=== PATIENT | female | born 1990 | race Caucasian/White ===

== ENCOUNTER 2016-06-07 17:24 | Emergency (ER) | payer MEDICAID ==
[2016-06-07 17:44] VITALS: BP 112/70
--- NOTE | 2016-06-07 18:27 | UC ---
Dental HPI - HPI Summary HPI Summary: right sided ELAM x 2 weeks with dental pain. No fever. No relief with ibuprofen or aleve, which pt has been taking despite allergy. Pt has had wisdom teeth removed. Has an appt with a dentist tomorrow. - History of Current Complaint Chief Complaint: UCDentalProblem Stated Complaint: HEADACHES,TOOTHACHE Time Seen by Provider: 06/07/16 18:07 Hx Obtained From: Patient Hx Last Menstrual Period: Feb 2016 ?: No Onset/Duration: Gradual Onset, Lasting Weeks, Still Present Severity: Severe Pain Intensity: 10 Pain Scale Used: 0-10 Numeric Aggravating: Nothing Alleviating: Nothing - Allergies/Home Medications Allergies/Adverse Reactions: Allergies Allergy/AdvReac Type Severity Reaction Status Date / Time Ibuprofen Allergy Intermediate Hives Verified 06/07/16 17:32 Aminothiols Allergy Unknown Vomiting Verified 06/07/16 17:32 Aztreonam Allergy Unknown Unknown Verified 06/07/16 17:32 Reaction Details Carbapenems Allergy Unknown Unknown Verified 06/07/16 17:32 Reaction Details Cephalosporins Allergy Unknown Unknown Verified 06/07/16 17:32 Reaction Details Macrolides Allergy Unknown Unknown Verified 06/07/16 17:32 Reaction Details Penicillins Allergy Unknown Unknown Verified 06/07/16 17:32 Reaction Details Latex Allergy Swelling Verified 06/07/16 17:32 ANESTHETICS Allergy Unknown Unknown Uncoded 06/07/16 17:32 Reaction Details ketoloides Allergy Unknown Unknown Uncoded 06/07/16 17:32 Reaction Details PMH/Surg Hx/FS Hx/Imm Hx GI/ History Of: Reports: Gastroesophageal Reflux - Surgical History Surgical History: Yes Surgery Procedure, Year, and Place: TONSILLECTOMY. C-SECT X 1 - Family History Known Family History: Positive: Hypertension - Social History Alcohol Use: None Substance Use Type: None Smoking Status (MU): Never Smoked Tobacco Type: Cigarettes When Did the Patient Quit Smoking/Using Tobacco: TWO YEARS AGO - Immunization History Most Recent Influenza Vaccination: None Most Recent Tetanus Shot: UTD Most Recent Pneumonia Vaccination: N/A Review of Systems Constitutional: Negative ENT: Dental Pain, Ear Ache Cardiovascular: Negative Motor: Negative Neurovascular: Negative Musculoskeletal: Negative Neurological: Headache Psychological: Negative All Other Systems Reviewed And Are Negative: Yes Physical Exam Triage Information Reviewed: Yes Appearance: Well-Nourished, Ill-Appearing, Pain Distress Vital Signs: Initial Vital Signs Temp 98.1 F 06/07/16 17:34 Pulse 84 06/07/16 17:34 Resp 18 06/07/16 17:34 BP 112/70 06/07/16 17:34 Pulse Ox 100 06/07/16 17:34 Vital Signs Reviewed: Yes Eyes: Positive: Conjunctiva Clear ENT: Positive: Hearing grossly normal, Pharynx normal, TMs normal Dental: Positive: Percussion Tenderness @ - right rear lower molar, Abscess @ - right rear molar, lower, Cellulitis @ - right lower rear molar Neck: Positive: Supple, Nontender, No Lymphadenopathy Respiratory: Positive: No respiratory distress Cardiovascular: Positive: RRR, No Murmur, Pulses Normal, Brisk Capillary Refill Musculoskeletal: Positive: Strength Intact, ROM Intact Neurological Exam: Normal Psychological Exam: Normal Skin Exam: Normal Dental Complaint Course/Dx - Differential Dx/Diagnosis Differential Diagnosis/Dx: Dental Abscess, Dental Caries Provider Diagnoses: dental abscess. headache Discharge - Discharge Plan Condition: Stable Disposition: HOME Prescriptions: Acetaminop/Codeine 30 MG TAB* [Tylenol/Codeine 30 MG TAB*] 1 tab PO Q8H PRN #6 tab MDD 3 PRN Reason: Pain Clindamycin CAP* [Cleocin 150 MG CAP*] 150 mg PO QID #40 cap Patient Education Materials: Dental Abscess (ED), Acute Headache (ED) Referrals: Nara Morin MD [Primary Care Provider] - 7 Days Additional Instructions: Keep the appointment with the dentist tomorrow. Return to urgent care if any new or worsening symptoms.
[2016-06-07] MEDS ORDERED: Acetaminophen TAB* 325 MG PO ONE (18:48)
== END 2016-06-07 19:01 | disposition home or self-care (01) ==
LOC: UCCORT 17:24
DX: K04.7 Periapical abscess without sinus (principal); R51 Headache; Z32.02 Encounter for pregnancy test, result negative; Z88.4 Allergy status to anesthetic agent; Z88.6 Allergy status to analgesic agent; Z88.1 Allergy status to other antibiotic agents; Z88.0 Allergy status to penicillin; Z88.8 Allergy status to other drugs, medicaments and biological substances
CPT/HCPCS: 81003; 84702; 99212; A9270-GY; G0463

== ENCOUNTER 2016-06-13 19:11 | Emergency (ER) | payer MEDICAID ==
[2016-06-13 20:48] VITALS: BP 116/75
[2016-06-13] MEDS ORDERED: diPHENhydraMINE PO* 25 MG PO ONE (21:32)
--- NOTE | 2016-06-13 21:38 | UC ---
Complaint Female HPI - HPI Summary HPI Summary: Vulvar itching and open areas starting 2 days ago. Feels like "infections" she' s had in the past. Denies fever or abdominal pain. Has current female sexual partner. No recent testing for STIs Also has had itchy bumps showing up on both legs for the last day or so. 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 - History Of Current Complaint Chief Complaint: UCGU Stated Complaint: PERSONAL Time Seen by Provider: 06/13/16 21:11 Hx Obtained From: Patient Hx Last Menstrual Period: Feb 2016 ?: No Onset/Duration: Gradual Onset, Lasting Days Timing: Constant Severity Initially: Mild Severity Currently: Mild Aggravating Factor(s): Urination Associated Signs And Symptoms: Negative: Vaginal Bleeding/Discharge, Vomiting(# Of Episodes =), Genital Blisters - Allergies/Home Medications Allergies/Adverse Reactions: Allergies Allergy/AdvReac Type Severity Reaction Status Date / Time Ibuprofen Allergy Intermediate Hives Verified 06/13/16 20:48 Aminothiols Allergy Unknown Vomiting Verified 06/13/16 20:48 Aztreonam Allergy Unknown Unknown Verified 06/13/16 20:48 Reaction Details Carbapenems Allergy Unknown Unknown Verified 06/13/16 20:48 Reaction Details Cephalosporins Allergy Unknown Unknown Verified 06/13/16 20:48 Reaction Details Macrolides Allergy Unknown Unknown Verified 06/13/16 20:48 Reaction Details Penicillins Allergy Unknown Unknown Verified 06/13/16 20:48 Reaction Details Latex Allergy Swelling Verified 06/13/16 20:48 ANESTHETICS Allergy Unknown Unknown Uncoded 06/13/16 20:48 Reaction Details ketoloides Allergy Unknown Unknown Uncoded 06/13/16 20:48 Reaction Details PMH/Surg Hx/FS Hx/Imm Hx GI/ History Of: Reports: Gastroesophageal Reflux - Surgical History Surgical History: Yes Surgery Procedure, Year, and Place: TONSILLECTOMY. C-SECT X 1 - Family History Known Family History: Positive: Hypertension - Social History Alcohol Use: None Substance Use Type: None Smoking Status (MU): Never Smoked Tobacco Type: Cigarettes When Did the Patient Quit Smoking/Using Tobacco: TWO YEARS AGO - Immunization History Most Recent Influenza Vaccination: None Most Recent Tetanus Shot: UTD Most Recent Pneumonia Vaccination: N/A Review of Systems Constitutional: Negative Skin: Rash Eyes: Negative ENT: Negative Respiratory: Negative Cardiovascular: Negative Gastrointestinal: Negative Genitourinary: Other - itching, lesions Motor: Negative Neurovascular: Negative Musculoskeletal: Negative Neurological: Negative Psychological: Negative All Other Systems Reviewed And Are Negative: Yes Physical Exam Triage Information Reviewed: Yes Appearance: Well-Appearing, No Pain Distress, Obese Vital Signs: Initial Vital Signs Temp 99.9 F 06/13/16 20:43 Pulse 79 06/13/16 20:43 Resp 16 06/13/16 20:43 BP 116/75 06/13/16 20:43 Pulse Ox 99 06/13/16 20:43 Vital Signs Reviewed: Yes Eye Exam: Normal Eyes: Positive: Conjunctiva Clear ENT Exam: Normal ENT: Positive: Normal ENT inspection, Hearing grossly normal, Pharynx normal, TMs normal Dental Exam: Normal Neck exam: Normal Neck: Positive: Supple, Nontender, No Lymphadenopathy Respiratory Exam: Normal Respiratory: Positive: Chest non-tender, Lungs clear, Normal breath sounds, No respiratory distress, No accessory muscle use Cardiovascular Exam: Normal Cardiovascular: Positive: RRR, No Murmur Abdomen Description: Positive: Soft. Negative: CVA Tenderness (R), CVA Tenderness (L) Musculoskeletal Exam: Normal Neurological Exam: Normal Psychological Exam: Normal Skin Exam: Other - large papules on legs - Additional Comments pelvic exam performed, swabs for affirm and gc/chlamydia collected. External vulva has open denuded areas, white d/c present. Vaginal simeon unremarkable, white discharge present. Cervix and adnexa nontender, no masses. Complaint Female Dx - Differential Dx/Diagnosis Provider Diagnoses: yeast vaginitis. Insect bites Discharge - Discharge Plan Condition: Stable Disposition: HOME Prescriptions: Fluconazole [Diflucan 150 MG (NF)] 150 mg PO ONCE #2 tab Patient Education Materials: Bed Bugs (ED), Vulvovaginal Candidiasis (ED) Referrals: Nara Morin MD [Primary Care Provider] -
== END 2016-06-13 22:35 | disposition home or self-care (01) ==
LOC: UCCORT 19:11
DX: B37.3 Candidiasis of vulva and vagina (principal); S80.862A Insect bite (nonvenomous), left lower leg, initial encounter; S80.861A Insect bite (nonvenomous), right lower leg, initial encounter; W57.XXXA Bitten or stung by nonvenomous insect and other nonvenomous arthropods, initial encounter; Y93.9 Activity, unspecified; Y92.9 Unspecified place or not applicable; K21.9 Gastro-esophageal reflux disease without esophagitis; E66.9 Obesity, unspecified; Z88.6 Allergy status to analgesic agent; Z88.4 Allergy status to anesthetic agent; Z88.0 Allergy status to penicillin; Z87.891 Personal history of nicotine dependence
CPT/HCPCS: 87480; 87491; 87510; 87591; 87661; 99212; G0463

== ENCOUNTER 2017-01-11 21:40 | Emergency (ER) | payer MEDICAID ==
[2017-01-11] MEDS ORDERED: metroNIDAZOLE TAB* 250 MG PO ONE (21:54)
--- NOTE | 2017-01-11 21:59 | UC ---
Complaint Female HPI - HPI Summary HPI Summary: vaginal itchy and discharge x 2 days no vaginal pain no fever, no chills, no dysuri - History Of Current Complaint Stated Complaint: PERSONAL Time Seen by Provider: 01/11/17 21:41 Hx Obtained From: Patient Hx Last Menstrual Period: Feb 2016 ?: No Onset/Duration: Gradual Onset, Lasting Days - 2, Still Present Timing: Constant Severity Initially: Moderate Severity Currently: Moderate Aggravating Factor(s): [place] Alleviating Factor(s): Nothing Associated Signs And Symptoms: Positive: Vaginal Discharge. Negative: Nausea, Vomiting(# Of Episodes =), Genital Swelling, Genital Blisters, Retained [place]gin Body (Specify) - Allergies/Home Medications Allergies/Adverse Reactions: Allergies Allergy/AdvReac Type Severity Reaction Status Date / Time Ibuprofen Allergy Intermediate Hives Verified 06/13/16 20:48 Aminothiols Allergy Unknown Vomiting Verified 06/13/16 20:48 Aztreonam Allergy Unknown Unknown Verified 06/13/16 20:48 Reaction Details Carbapenems Allergy Unknown Unknown Verified 06/13/16 20:48 Reaction Details Cephalosporins Allergy Unknown Unknown Verified 06/13/16 20:48 Reaction Details Macrolides Allergy Unknown Unknown Verified 06/13/16 20:48 Reaction Details Penicillins Allergy Unknown Unknown Verified 06/13/16 20:48 Reaction Details Latex Allergy Swelling Verified 06/13/16 20:48 ANESTHETICS Allergy Unknown Unknown Uncoded 06/13/16 20:48 Reaction Details ketoloides Allergy Unknown Unknown Uncoded 06/13/16 20:48 Reaction Details PMH/Surg Hx/FS Hx/Imm Hx Previously Healthy: Yes - Surgical History Surgical History: Yes Surgery Procedure, Year, and Place: TONSILLECTOMY. C-SECT X 1 - Family History Known Family History: Positive: Hypertension - Social History Alcohol Use: None Substance Use Type: None Smoking Status (MU): Never Smoked Tobacco Type: Cigarettes When Did the Patient Quit Smoking/Using Tobacco: TWO YEARS AGO - Immunization History Most Recent Influenza Vaccination: None Most Recent Tetanus Shot: UTD Most Recent Pneumonia Vaccination: N/A Review of Systems Constitutional: Negative Skin: Negative Eyes: Negative ENT: Negative Respiratory: Negative Cardiovascular: Negative Gastrointestinal: Negative Genitourinary: Vaginal/Penile Itching, Vaginal/Penile Discharge Motor: Negative Is Patient Immunocompromised?: No All Other Systems Reviewed And Are Negative: Yes Physical Exam Triage Information Reviewed: Yes Appearance: Well-Appearing, No Pain Distress, Well-Nourished Vital Signs Reviewed: Yes Eyes: Positive: Conjunctiva Clear ENT: Positive: Normal ENT inspection, Hearing grossly normal, Pharynx normal Neck exam: Normal Neck: Positive: Supple, Nontender, No Lymphadenopathy Respiratory: Positive: Chest non-tender, Lungs clear, Normal breath sounds Cardiovascular: Positive: RRR, No Murmur, Pulses Normal Abdominal Exam: Normal Abdomen Description: Positive: Nontender, Soft. Negative: CVA Tenderness (R), CVA Tenderness (L), Distended, Guarding Bowel Sounds: Positive: Present Musculoskeletal Exam: Normal Skin Exam: Normal UC Physical Exam - Genitalia Exam Female Genitourinary: Genitalia without Lesions/Masses, Cervix Discharge Complaint Female Dx - Differential Dx/Diagnosis Provider Diagnoses: vaginitis Discharge - Discharge Plan Condition: Stable Disposition: HOME Prescriptions: Metronidazole [Flagyl 500 MG TAB] 500 mg PO BID #14 tab Patient Education Materials: Bacterial Vaginosis (ED) Referrals: Nara Morin MD [Primary Care Provider] - 7 Days
[2017-01-11 22:00] VITALS: BP 107/65
== END 2017-01-11 22:27 | disposition home or self-care (01) ==
LOC: UCCORT 21:40
DX: N76.0 Acute vaginitis (principal); Z88.6 Allergy status to analgesic agent; Z88.0 Allergy status to penicillin
CPT/HCPCS: 81003; 84702; 87480; 87491; 87510; 87591; 99212; A9270-GY; G0463

== ENCOUNTER 2017-02-02 21:39 | Emergency (ER) | payer MEDICAID ==
--- NOTE | 2017-02-02 21:49 | UC ---
Respiratory Complaint HPI - HPI Summary HPI Summary: 27 YEAR OLD FEMALE PRESENTS SEVERE LEFT BREAST PAIN. - History of Current Complaint Stated Complaint: COUGH/ LEFT BREAST PAIN Time Seen by Provider: 02/02/17 21:46 Hx Obtained From: Patient Hx Last Menstrual Period: Feb 2016 Onset/Duration: Sudden Onset Severity Initially: Moderate Severity Currently: Moderate - Allergies/Home Medications Allergies/Adverse Reactions: Allergies Allergy/AdvReac Type Severity Reaction Status Date / Time Ibuprofen Allergy Intermediate Hives Verified 02/02/17 21:52 Aminothiols Allergy Unknown Vomiting Verified 02/02/17 21:52 Aztreonam Allergy Unknown Unknown Verified 02/02/17 21:52 Reaction Details Carbapenems Allergy Unknown Unknown Verified 02/02/17 21:52 Reaction Details Cephalosporins Allergy Unknown Unknown Verified 02/02/17 21:52 Reaction Details Macrolides Allergy Unknown Unknown Verified 02/02/17 21:52 Reaction Details Penicillins Allergy Unknown Unknown Verified 02/02/17 21:52 Reaction Details Amoxicillin Allergy Hives Verified 02/02/17 21:52 Latex Allergy Swelling Verified 02/02/17 21:52 ANESTHETICS Allergy Unknown Unknown Uncoded 02/02/17 21:52 Reaction Details ketoloides Allergy Unknown Unknown Uncoded 02/02/17 21:52 Reaction Details Home Medications: Home Medications Unknown Antibiotic 1 tab PO BID 02/02/17 [History Confirmed 02/02/17] PMH/Surg Hx/FS Hx/Imm Hx Previously Healthy: Yes - Surgical History Surgical History: Yes Surgery Procedure, Year, and Place: TONSILLECTOMY. C-SECT X 1 - Family History Known Family History: Positive: Hypertension - Social History Alcohol Use: None Substance Use Type: None Smoking Status (MU): Never Smoked Tobacco Type: Cigarettes When Did the Patient Quit Smoking/Using Tobacco: TWO YEARS AGO - Immunization History Most Recent Influenza Vaccination: None Most Recent Tetanus Shot: UTD Most Recent Pneumonia Vaccination: N/A Review of Systems Constitutional: Negative Skin: Other - SEVERE LEFT BREAST PAIN Eyes: Negative ENT: Negative Respiratory: Cough Cardiovascular: Negative Gastrointestinal: Negative Genitourinary: Negative Motor: Negative Neurovascular: Negative Musculoskeletal: Negative Neurological: Negative Psychological: Negative All Other Systems Reviewed And Are Negative: Yes Physical Exam Triage Information Reviewed: Yes Vital Signs Reviewed: Yes Eye Exam: Normal ENT Exam: Normal Dental Exam: Normal Neck exam: Normal Neck: Positive: 1 Respiratory Exam: Normal Cardiovascular Exam: Normal Abdominal Exam: Normal Musculoskeletal Exam: Normal Neurological Exam: Normal Psychological Exam: Normal Skin: Positive: Other - SEVERE LEFT BREAST PAIN Respiratory Course/Dx - Differential Dx/Diagnosis Provider Diagnoses: SEVERE LEFT BREAST PAIN. COUGH Discharge - Discharge Plan Condition: Stable Disposition: OTHER Discharge Disposition Comment: PATIENT SUGGESTED TO GO TO THE ER. Patient Education Materials: Breast Mass (ED), Fibrocystic Breast Changes (ED) Referrals: Nara Morin MD [Primary Care Provider] - Additional Instructions: PATIENT SUGGESTED TO GO TO [facility] ER FOR SEVERE LEFT BREAST TENDERNESS.
[2017-02-02 21:52] VITALS: BP 138/81
== END 2017-02-02 22:06 ==
LOC: UCCORT 21:39
DX: N64.4 Mastodynia (principal); R05 Cough; Z32.02 Encounter for pregnancy test, result negative; Z88.0 Allergy status to penicillin; Z88.8 Allergy status to other drugs, medicaments and biological substances; Z88.6 Allergy status to analgesic agent; Z88.4 Allergy status to anesthetic agent; Z88.1 Allergy status to other antibiotic agents; Z91.040 Latex allergy status
CPT/HCPCS: 84702; 99212; G0463

== ENCOUNTER 2017-07-02 17:28 | Emergency (ER) | payer MEDICAID ==
[2017-07-02 19:22] VITALS: BP 112/68
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
== END 2017-07-02 20:42 | disposition home or self-care (01) ==
LOC: UCCORT 17:28
DX: N76.0 Acute vaginitis (principal); Z32.02 Encounter for pregnancy test, result negative; F17.210 Nicotine dependence, cigarettes, uncomplicated; Z88.0 Allergy status to penicillin; Z88.3 Allergy status to other anti-infective agents; Z88.6 Allergy status to analgesic agent
CPT/HCPCS: 81003; 84702; 87480; 87491; 87510; 87591; 87661; 99212; G0463

== ENCOUNTER 2017-07-12 19:03 | Emergency (ER) | payer MEDICAID ==
[2017-07-12 20:41] VITALS: BP 120/69
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
== END 2017-07-12 21:01 | disposition home or self-care (01) ==
LOC: UCCORT 19:03
DX: T23.102A Burn of first degree of left hand, unspecified site, initial encounter (principal); T31.0 Burns involving less than 10% of body surface; X19.XXXA Contact with other heat and hot substances, initial encounter; Y93.G3 Activity, cooking and baking; Y92.9 Unspecified place or not applicable; F17.210 Nicotine dependence, cigarettes, uncomplicated; Z88.3 Allergy status to other anti-infective agents; Z88.0 Allergy status to penicillin; Z88.4 Allergy status to anesthetic agent
CPT/HCPCS: 99211; G0463

== ENCOUNTER 2018-11-23 17:44 | Emergency (ER) | payer MEDICAID ==
[2018-11-23 18:10] VITALS: BP 107/64
--- NOTE | 2018-11-23 18:38 | UC ---
Complaint Female HPI - HPI Summary HPI Summary: had unprotected sex 2 months ago and for 1 month she has had vaginal irritation- --she wants to be sure she does not have an STD - History Of Current Complaint Chief Complaint: UCSTDScreening Stated Complaint: URINARY COMPLAINT Time Seen by Provider: 11/23/18 17:55 Hx Obtained From: Patient Hx Last Menstrual Period: 11/14/18 ?: No Onset/Duration: Gradual Onset, Lasting Weeks - 4, Still Present Timing: Constant Pain Intensity: 0 Pain Scale Used: 0-10 Numeric Character: Burning Aggravating Factor(s): Nothing Alleviating Factor(s): Nothing Associated Signs And Symptoms: Positive: Negative - Allergies/Home Medications Allergies/Adverse Reactions: Allergies Allergy/AdvReac Type Severity Reaction Status Date / Time amoxicillin Allergy Hives Verified 07/12/17 20:40 latex Allergy Swelling Verified 07/12/17 20:40 Penicillins Allergy Hives Verified 07/12/17 20:40 ANESTHETICS Allergy Unknown Unknown Uncoded 07/12/17 20:40 Reaction Details PMH/Surg Hx/FS Hx/Imm Hx Previously Healthy: No GI/ History: Gastroesophageal Reflux - Surgical History Surgical History: Yes Surgery Procedure, Year, and Place: TONSILLECTOMY. C-SECT X 1 - Family History Known Family History: Positive: Hypertension - Social History Occupation: Employed Full-time Lives: With Family Alcohol Use: None Substance Use Type: None Smoking Status (MU): Light Every Day Tobacco Smoker Type: Cigarettes Amount Used/How Often: 4 cigs/day When Did the Patient Quit Smoking/Using Tobacco: TWO YEARS AGO - Immunization History Most Recent Influenza Vaccination: None Most Recent Tetanus Shot: UTD Most Recent Pneumonia Vaccination: N/A Vaccination Up to Date: Yes Review of Systems All Other Systems Reviewed And Are Negative: Yes Constitutional: Positive: Negative Skin: Positive: Negative Eyes: Positive: Negative ENT: Positive: Negative Respiratory: Positive: Negative Cardiovascular: Positive: Negative Gastrointestinal: Positive: Negative Genitourinary: Positive: Vaginal/Penile Itching Motor: Positive: Negative Neurovascular: Positive: Negative Musculoskeletal: Positive: Negative Neurological: Positive: Negative Psychological: Positive: Negative Is Patient Immunocompromised?: No Physical Exam Triage Information Reviewed: Yes Appearance: Well-Appearing, No Pain Distress, Well-Nourished Vital Signs: Initial Vital Signs Temp 99.8 F 11/23/18 18:04 Pulse 88 11/23/18 18:04 Resp 18 11/23/18 18:04 BP 107/64 11/23/18 18:04 Pulse Ox 98 11/23/18 18:04 Vital Signs Reviewed: Yes Eye Exam: Normal Eyes: Positive: Conjunctiva Clear ENT Exam: Normal ENT: Positive: Normal ENT inspection, Hearing grossly normal. Negative: Nasal congestion, Trismus, Muffled voice, Hoarse voice Neck exam: Normal Neck: Positive: Supple, Nontender Respiratory Exam: Normal Respiratory: Positive: No respiratory distress, No accessory muscle use Cardiovascular Exam: Normal Cardiovascular: Positive: RRR, Pulses Normal, Brisk Capillary Refill Abdominal Exam: Normal Abdomen Description: Positive: Nontender, No Organomegaly, Soft. Negative: CVA Tenderness (R), CVA Tenderness (L) Bowel Sounds: Positive: Present Pelvic Exam: Positive: External Exam Normal, Speculum Exam Normal, Bimanual Exam Normal. Negative: No Cerv. Motion Tender, Blood, Cervicitis, Discharge, Tender w/ Cervical Motion Musculoskeletal Exam: Normal Musculoskeletal: Positive: Strength Intact, ROM Intact Neurological Exam: Normal Neurological: Positive: Alert Psychological Exam: Normal Skin Exam: Normal Complaint Female Dx - Course Course Of Treatment: wash with cool water and mild or no soap, avoid tihght underware- use cotton panties--we did lab testing today and will call you if there is any need for treatment---follow with pcp - Differential Dx/Diagnosis Provider Diagnosis: Vagina itching Discharge ED - Sign-Out/Discharge Documenting (check all that apply): Patient Departure All imaging exams completed and their final reports reviewed: No Studies - Discharge Plan Condition: Stable Disposition: HOME Patient Education Materials: Vaginitis (ED) Referrals: Shavon Clemons MD [Primary Care Provider] - 1 Week Additional Instructions: You do not have any objective findings right now that consistent with STD-We will call you if any of you tests are positive and call in antibiotics for you - Billing Disposition and Condition Condition: STABLE Disposition: Home - Attestation Statements Provider Attestation: Per institutional requirements, I have reviewed the chart, however, I was not consulted specifically or made aware of this patient by the midlevel provider. I did not personally evaluate, interact with , or disposition this patient.
[2018-11-24 15:06] LABS: HIV 4th Generation Nonreactive (Nonreactive)
[2018-11-24 15:07] LABS: Hepatitis C Antibody Negative (Negative)
[2018-11-25 14:28] LABS: Chlamydia trachomatis NAA Negative (Negative); Neisseria gonorrhoeae (GC) NAA Negative (Negative)
== END 2018-11-23 19:07 | disposition home or self-care (01) ==
LOC: UCCORT 17:44
DX: L29.2 Pruritus vulvae (principal); Z88.0 Allergy status to penicillin; Z88.4 Allergy status to anesthetic agent; Z91.040 Latex allergy status; Z87.891 Personal history of nicotine dependence
CPT/HCPCS: 36415; 81003; 84702; 86780; 86803; 87389; 87480; 87491; 87510; 87591; 87661; 99212; G0463

== ENCOUNTER 2019-07-07 14:10 | Emergency (ER) | payer MEDICAID ==
[2019-07-07 14:47] LABS: ABS Basophils 0.1 10^3/ul (0-0.2); ABS Eosinophils 0.1 10^3/ul (0-0.6); ABS Monocytes 0.7 10^3/ul (0-0.8); Eosinophil % 1.4 %; Hematocrit 39 % (35-47); Hemoglobin 13.5 g/dL (12.0-16.0); Mean Corpuscular HGB Conc 35 g/dL (31-36); Mean Corpuscular Hemoglobin 28 pg (27-31); Mean Corpuscular Volume 81 fL (80-97); Mean Platelet Volume 8.7 fL (7.4-10.4); Platelet Count 270 10^3/uL (150-450); Red Blood Count 4.81 10^6 /uL (3.70-4.87); Red Cell Distribution Width 13 % (10-15); White Blood Count 9.7 10^3/uL (3.5-10.8)
[2019-07-07 14:54] LABS: Urine Appearance Cloudy; Urine Bilirubin Negative (Negative); Urine Blood Negative (Negative); Urine Color Yellow; Urine Glucose Negative (Negative); Urine Ketones Negative (Negative); Urine Nitrite Negative (Negative); Urine Protein Negative (Negative); Urine Specific Gravity 1.026 (1.010-1.030); Urine Urobilinogen Negative (Negative)
[2019-07-07 14:55] LABS: Activated Partial Thrombo Time 38.4 seconds (26.0-38.0); INR 1.09 (0.82-1.09)
[2019-07-07 15:06] LABS: Albumin/Globulin Ratio 1.2 (1-3); BUN/Creatinine Ratio 17.2 (8-20); Calcium 9.4 mg/dL (8.6-10.3); EGFR African American 146.7 (>60); EGFR Non-African American 121.3 (>60); Globulin 3.4 g/dL (2-4); Potassium 3.9 mmol/L (3.5-5.0); Total Bilirubin 0.3 mg/dL (0.2-1.0); Total Protein 7.4 g/dL (6.4-8.9)
[2019-07-07 16:05] VITALS: BP 00/00
== END 2019-07-07 16:04 | disposition home or self-care (01) ==
LOC: ED 14:10

== ENCOUNTER 2020-02-04 08:50 | Inpatient (IN) ==
[~2020-02-04 08:50] MED LIST: Buffered Lidocaine 1% SYRIN 1 ml INTRADERM ONE; Lactated Ringers 1000 ml BAG 1,000 ML IV SCH; Sodium Citrate/Citric Acid LIQ 15 ML UDC PO ONE
[2020-02-04] MEDS ORDERED: ceFOXitin 2 GM IVPREMIX 2 GM/50 ML BAG ONE (10:36)
[2020-02-04] MEDS ORDERED: ceFOXitin 2 GM PREMIX 50 ML IVPB ONE (11:00)
[2020-02-04] MEDS ORDERED: Oxytocin 10 UNITS/ML 1 ML VIAL ONE (11:10)
[2020-02-04] MEDS ORDERED: Phenylephrine 40 mcg/mL 10mL (400mcg) SYRINGE ONE (11:10)
[2020-02-04] MEDS ORDERED: Morphine PF AMP (0.5MG/ML) 5 MG/10 ML AMP ONE (11:10)
[2020-02-04] MEDS ORDERED: Ondansetron 4 mg VIAL 2 MG/ML 2 ml VIAL IV PRN ×2 (11:48→11:50)
[2020-02-04] MEDS ORDERED: Naloxone 0.4 mg VIAL 0.4 mg/ml 1 ml VIAL IV PRN ×2 (11:48→11:50)
[2020-02-04] MEDS ORDERED: fentaNYL 100 mcg/2 ml 50 MCG/ML VIAL IV PRN (11:48)
[2020-02-04] MEDS ORDERED: oxyCODONE/Acetamin 5/325 mg TAB PO PRN ×2 (11:50)
[2020-02-04] MEDS ORDERED: Glycerin ADULT 2.4 gm SUPP PR PRN (12:45)
[2020-02-04] MEDS ORDERED: Witch Hazel PAD JAR TOPICAL PRN (12:45)
[2020-02-04] MEDS ORDERED: Dibucaine 1% OINT 28.35 GM TUBE PR PRN (12:45)
[2020-02-04] MEDS ORDERED: Oxytocin in LR 20 UNITS/1,000 ML BAG IVPB SCH (13:00)
[2020-02-04] MEDS: diPHENhydraMINE IV 50 MG/ML 1 ml VIAL (BENADRYL) IV PRN (14:44)
[2020-02-04 22:26] LABS: Urine Appearance Clear; Urine Bilirubin Negative (Negative); Urine Blood Negative (Negative); Urine Color Amber; Urine Glucose Negative (Negative); Urine Ketones Trace (Negative); Urine Nitrite Negative (Negative); Urine Protein 2+(100 mg/dL) (Negative); Urine Specific Gravity 1.024 (1.010-1.030); Urine Urobilinogen Negative (Negative)
[2020-02-04 22:27] LABS: Urine Bacteria 1+ (Absent); Urine Red Blood Cell Trace(0-2/hpf) (Absent); Urine White Blood Cell Trace(0-5/hpf) (Absent)
[2020-02-05] MEDS: diPHENhydraMINE IV 50 MG/ML 1 ml VIAL (BENADRYL) IV PRN (01:57)
[2020-02-05 08:05] LABS: ABS Eosinophils 0.1 10^3/ul (0-0.6); ABS Lymphocytes 1.7 10^3/ul (1.0-4.8); ABS Monocytes 0.9 10^3/ul (0-0.8); ABS Neutrophils 6.8 10^3/ul (1.5-7.7); Eosinophil % 1.5 %; Hematocrit 27 % (35-47); Hemoglobin 8.8 g/dL (12.0-16.0); Lymphocyte % 17.7 %; Mean Corpuscular HGB Conc 33 g/dL (31-36); Mean Corpuscular Hemoglobin 24 pg (27-31); Mean Corpuscular Volume 73 fL (80-97); Platelet Count 274 10^3/uL (150-450); Red Blood Count 3.72 10^6 /uL (3.70-4.87); Red Cell Distribution Width 16 % (10-15); White Blood Count 9.5 10^3/uL (3.5-10.8)
[2020-02-05] MEDS: Nicotine PATCH 7 MG/24 HR PATCH TRANSDERM SCH (08:39)
[2020-02-05] MEDS ORDERED: Measles, Mumps,Rubella VACC 0.5 ML/VIAL SUBCUT ONE (09:00)
[2020-02-05] MEDS ORDERED: RHO D Immune Globulin (HUMAN) 300 MCG = 1,500 I.U. INJ IM ONE (11:00)
[2020-02-06] MEDS: Nicotine PATCH 7 MG/24 HR PATCH TRANSDERM SCH (09:25)
[2020-02-07 08:28] VITALS: BP 119/66
[2020-02-07] MEDS: Nicotine PATCH 7 MG/24 HR PATCH TRANSDERM SCH (08:41)
[2020-02-07] MEDS ORDERED: Scopolamine PATCH Remove NOTE PATCH OFF PRN (12:00)
== END 2020-02-07 17:35 | disposition home or self-care (01) | DRG 540 ==
LOC: MCHOB 08:50
PROVIDERS: ADMIT Obstetrics & Gynecology; ATTEND Obstetrics & Gynecology